=== PATIENT | male | born 1985 | race Native Hawaiian/Other Pacific Islander ===

== ENCOUNTER 2024-04-27 16:07 | Emergency (ER) | payer SELFPAY ==
[~2024-04-27] VITALS: Ht 170.2 cm; Wt 63.6 kg
[2024-04-27 16:23] VITALS: BP 136/82; TEMP 99.4
[2024-04-27] MEDS ORDERED: Ibuprofen 600 MG TAB PO ONE (18:00)
[2024-04-27 19:35] VITALS: PULSE 93
== END 2024-04-27 19:31 | disposition home or self-care (01) ==
LOC: COL.ER 16:07
DX: J06.9 Acute upper respiratory infection, unspecified (principal)